=== PATIENT | female | born 1970 | race Caucasian/White ===

== ENCOUNTER → 2024-09-02 17:42 | Outpatient (REF) | payer OTHER, SELFPAY | LOC: WDC 17:42 | PROVIDERS: ATTENDING PHYSICIAN Nurse Practitioner Family | DX: Z12.31 Encounter for screening mammogram for malignant neoplasm of breast (principal) | CPT/HCPCS: 77063; 77067 ==

== ENCOUNTER → 2025-09-03 16:30 | Outpatient (REF) | payer OTHER, SELFPAY | LOC: WDC 16:30 | PROVIDERS: ATTENDING PHYSICIAN Nurse Practitioner Family | DX: Z12.31 Encounter for screening mammogram for malignant neoplasm of breast (principal) | CPT/HCPCS: 77063; 77067 ==